=== PATIENT | female | born 1985 | race Caucasian/White ===

== ENCOUNTER 2024-07-15 11:45 | Emergency (ER) | payer OTHER, SELFPAY ==
--- NOTE | ~2024-07-15 | US_ITS ---
US venous doppler UE RT DATE: 07/15/2024 14:16 INDICATION: Right arm pain TECHNIQUE: Real-time and color flow imaging and Doppler analysis of the veins of the right upper extr emity COMPARISON: None FINDINGS: Right internal jugular, subclavian, axillary, brachial, basilic, cephalic, radial and ulnar veins are patent. No intraluminal thrombus is noted. IMPRESSION: No evidence of deep venous thrombosis of the deep venous system of the right upper extrem ity Reviewed, dictated and finalized at [facility]. Reviewed, dictated and finalized at [facility]. ZE CHASER IMPRESSION: No evidence of deep venous thrombosis of the deep venous system of the right upper extremity
[2024-07-15 11:47] VITALS: BP 129/70; PULSE 80; RESP 18; TEMP 36.4; O2SAT 100
--- NOTE | 2024-07-15 12:29 | ED.UPPEXIN ---
HPI - Extremity Injury (Upper) General Chief Complaint: Extremity Injury, Upper Stated Complaint: sent by Dr. Clark to be seen for poss blood clot Time Seen by Provider: 07/15/24 12:30 Source: patient Mode of arrival: ambulatory Limitations: no limitations History of Present Illness HPI narrative: 39 YEARS OLD WHITE FEMALE DROVE HERSELF TO THE EMERGENCY ROOM COMPLAINING OF RIGHT ARM PAIN AND RIGHT BREAST PAIN STARTED AFTER RIGHT BREAST BIOPSY JUNE 12, 2024. THE BIOPSY SHOWED SOME CALCIFICATION, SCHEDULED FOR MRI FOR FURTHER EVALUATION. PATIENT WAS TOLD THAT HER BREAST PAIN RELATED TO THE HEMATOMA POST BIOPSY, RIGHT ARM PAIN COULD BE SECONDARY TO DEEP VEIN THROMBOSIS, REFERRED TO THE ED BY HER OBGYN FOR VENOUS DOPPLER. PATIENT DENIES TROUBLE BREATHING OR CHEST PAIN. OR RECENT TRAUMA. Related Data Allergies Allergy/AdvReac Type Severity Reaction Status Date / Time pistachio nut Allergy Swelling Verified 07/15/24 11:53 of Lip/Tongue/Throat PSEUDOEPHEDRINE HCL Allergy Severe DIFFICULTY Uncoded 07/15/24 11:53 IN BREATHING Review of Systems Review of Systems: All systems reviewed & are unremarkable except as noted in HPI and below Exam Narrative: GENERAL APPEARANCE: WELL-DEVELOPED, WELL-NOURISHED SKIN: NORMAL COLOR HEAD: NORMOCEPHALIC, NONTRAUMATIC EYES: CLEAR CONJUNCTIVA NECK: SUPPLE, NONTENDER. RIGHT BREAST EXAM SHOWED SLIGHT BRUISES DISTALLY, SLIGHTLY TENDER WITH PALPATION, NO SWELLING, NO DISCHARGE, NO WARMTH CHEST AND RESPIRATORY: AIRWAY PATENT, NO RESPIRATORY DISTRESS, NO ACCESSORY MUSCLE USE HEART: REGULAR RATE/RHYTHM ABDOMEN: SOFT, NONTENDER, NO ORGANOMEGALY, QUIET BOWEL SOUNDS VASCULAR: NORMAL PERIPHERAL PULSES, NORMAL CAPILLARY REFILL. MUSCULOSKELETAL: RIGHT ARM SHOWED SLIGHT TENDERNESS MEDIALLY, NO BRUISES, NO SWELLING, THE ARM IS SOFT IN CONSISTENCY, NO RASH OR DEFORMITY. NEUROLOGIC: ALERT AND ORIENTED ?3, LEAD JAVASCRIPT ENGINEER IS NORMAL TESTED, NO GROSS MOTOR DEFICIT Course Vital Signs Vital signs: Vital Signs Temperature 36.4 C L 07/15/24 11:47 Pulse Rate 80 07/15/24 11:47 Respiratory Rate 18 07/15/24 11:47 Blood Pressure 129/70 07/15/24 11:47 Pulse Oximetry 100 07/15/24 11:47 Oxygen Delivery Room Air 07/15/24 11:47 Temperature 36.4 C L 07/15/24 11:47 Pulse Rate 80 07/15/24 11:47 Respiratory Rate 18 12/08/24 11:47 Blood Pressure 129/70 07/15/24 11:47 Pulse Oximetry 100 07/15/24 11:47 Oxygen Delivery Room Air 07/15/24 11:47 MDM - Extremity Injury (Upper) MDM Narrative Medical decision making narrative: PATIENT PRESENTS WITH RIGHT ARM AND RIGHT WRIST PAIN VITAL SIGNS ARE STABLE PHYSICAL EXAMINATION SHOWING BRUISES OF THE RIGHT BREAST SECONDARY TO BIOPSY, RIGHT ARM EXAM SHOWED SLIGHT TENDERNESS MEDIALLY OTHERWISE INSIGNIFICANT DIFFERENTIAL DIAGNOSIS MUSCULOSKELETAL PAIN, POST BIOPSY HEMATOMA, RIGHT UPPER EXTREMITY DEEP VEIN THROMBOSIS EXTREMELY LESS LIKELY. VENOUS DOPPLER RIGHT UPPER EXTREMITY SHOWED Differential Diagnosis Differential diagnosis: Likely other ( ABOVE) Imaging Data Radiologist's impression: Impressions Venous Doppler Study 07/15/24 14:22 IMPRESSION: No evidence of deep venous thrombosis of the deep venous system of the right upper extremity Discharge Plan Discharge Clinical Impression: Arm pain, right Patient Disposition: Home, Self-Care Condition: Stable Instructions: Arm Pain (ED) Additional Instructions: RETURN IF SYMPTOMS ARE WORSENING , CALL YOUR FAMILY PHYSICIAN FOR APPOINTMENT, TAKE TYLENOL, IBUPROFEN NEEDED FOR ACHES AND PAIN, CONTINUE HOME MEDICATIONS. Follow-up/Referrals: UNKNOWN,DOCTOR [Non-Staff] -
[2024-07-15 14:42] VITALS: BP 96/60; PULSE 70; RESP 16; O2SAT 99
== END 2024-07-15 14:45 | disposition home or self-care (01) ==
PROVIDERS: Emergency Provider Emergency Medicine
DX: M79.601 Pain in right arm (principal)
CPT/HCPCS: 93971; 99284

== ENCOUNTER 2025-01-02 08:36 | Outpatient (CLI) | payer OTHER, SELFPAY ==
--- NOTE | ~2025-01-02 | MR_ITS ---
MR breast BI wo/w con 01/02/2025 10:47 CDT INDICATION: TECHNIQUE: MRI of the breasts perform using standard protocol pre-and post IV contrast with the follo wing sequences: Axial T2 STIR, axial T1, axial vibrant T1 with fat suppression precontrast and multip hasic postcontrast. COMPARISON: No prior studies for comparison. FINDINGS: There are no abnormalities on the precontrast sequences. There is mild background parenchym al enhancement. There is a focal 5 mm mass with rapid washout enhancement in the upper inner quadrant of the right breast, middle third measuring 5 x 2 x 3 mm with oval configuration, heterogeneous enha ncement, too small to characterize for internal septations. This has a linear configuration on tempor al images, most likely benign background enhancement. No evidence of signal abnormalities in the axil giorgi or internal mammary node distributions. LEFT BREAST: No signal abnormalities on precontrast sequences. There is mild background parenchymal enhancement. No enhancing lesions following contrast administration. No areas of enhancement meeti ng threshold criteria on CAD analysis. No evidence of signal abnormalities in the axillary or inter nal mammary node distributions. IMPRESSION: 1: Right breast: Probable focus of 5 mm linear background enhancement upper inner quadrant of the ri ght breast, middle third at approximately 1:00. 2: Left breast: Negative. No evidence of malignancy. Recommendation: Correlation with diagnostic bilateral mammogram and possible additional ultrasound re commended. BI-RADS CATEGORY 0 - INCOMPLETE STUDY, NEED ADDITIONAL IMAGING EVALUATION. Reviewed, dictated and finalized at location [facility]. IMPRESSION: 1: Right breast: Probable focus of 5 mm linear background enhancement upper in ner quadrant of the right breast, middle third at approximately 1:00. 2: Left breast: Negative. No evidence of malignancy. Recommendation: Correlation with diagnostic bilateral mammogram and possible ad ditional ultrasound recommended. BI-RADS CATEGORY 0 - INCOMPLETE STUDY, NEED ADDITIONAL IMAGING EVALUATION.
--- OUTSIDE RECORDS SUMMARY | 2025-01-02 08:41 | XMS_ITS | Clinical Summary ---
Author Organization [facility] Address [address] [place] [address] Care Team Providers Care Ceo & Founder Name Role Phone Reanna George MD Primary Care Provider Allergies Active Allergy Reactions Criticality Noted Date Comments Pistachio Nut Swollen tongue High 04/25/2024 Pseudoephedrine Shortness of breath Reaction: SOB, Medications Tri-Sprintec, 28, 0.18/0.215/0.25 mg-35 mcg (28) per tablet Take 1 tablet by mouth daily 11/09/[address] (PROTONIX) 20 mg EC tabletIndication s:Globus sensation,Gastro esophageal reflux disease, unspecified whether esophagitis present Take 1 tablet (20 mg total) by mouth daily 90 tablet 1 04/25/2024 5 Active Active Problems Problem Noted Date Diagnosed Date 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) Immunizations Immunization Administration Dates Next Due Influenza, Quadrivalent, Sadie l Culture-based MDCK, Preservative Free, Antibiotic Free, Intramuscular 07/05/2022 Influenza, Quadrivalent, Spl it, Preservative Free, Intramuscular 06/27/2023,05/08/2015,05/17/2014 Influenza, Trivalent, IM (MDV) 05/08/2013 Influenza, Unspecified 05/08/2019,05/24/2018,10/2016 Tdap 02/27/2020,05/19/2010 Surgical History Surgery Date Site/Laterality Comments WISDOM TOOTH EXTRACTION Oral Surgery Tooth Extraction [place] [facility] - (Added by TW Conv) BREAST BIOPSY 06/12/2024 Right Medical History Medical History Date Comments Hx Other Medical episiotomy repa ir; Comments: TOSHIA 03/24/2015 - Contact dermatitis Glaucoma Family History Medical History Relation Name Comments Diabetes Father Family history of diabetes mellitus - (Added by TW Conv) Breast cancer Mother Cancer -breast ; Cause of : Cancer -breast Ovarian cancer Mother Family histor y of ovarian cancer - (Added by TW Conv) Stroke Other 1 Family history of cerebrovascular accident (CVA) - Relation: Grandmother (Added by TW Conv) Heart disease Other 2 Family history of cardiac disorder - Relation: Grandparent (Added by TW Conv) Osteoporosis Other 3 Family history of osteoporosis - Relation: Grandmother (Added by TW Conv) Relation Name Status Comments Father Mother Other 1 Other 2 Other 3 Social History Tobacco Use Types Packs/Day Years Used Date Smoking Tobacco: Former Cigarettes 0.5 8 0 08/15/2000 - 08/15/2008 Smokeless Tobacco: Never Tobacco Cessation:Counseling Given: Not Answered Alcohol Use Standard Drinks/Week Comments Yes 0 (1 standard drink = 0.6 oz pur e alcohol) AUDIT-C Answer Date Recorded Q1: How often do you have a drink containing alc ohol? 2-4 times a month 12/08/2021 Q2: How many drinks containi ng alcohol do you have on a typical day when you are drinking? 1 or 2 12/08/2021 Q3: How often do you have si x or more drinks on one occasion? 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 Gender Identity Not on file Sexual Orientation Not on file Obstetrics History Last Filed Vital Signs Vital Sign Reading Time Taken Comments Blood Pressure 118/76 04/25/2024 8:26 AM CDT Pulse 71 02/27/2020 1:10 PM CDT Temperature 36.3 C (97.3 F) 04/25/2024 8:26 AM CDT Respiratory Rate 20 04/25/2024 8:26 AM CDT Oxygen Saturation 97% 02/27/2020 1:10 PM CDT Inhaled Oxygen Concentration - - Weight 64.4 kg (142 lb) 04/25/2024 8:26 AM CDT Height 165.1 cm (5' 5) 04/25/2024 8:26 AM CDT Body Mass Index 23.63 04/25/2024 8:26 AM CDT Plan of Treatment Health Maintenance Due Date Last Done Comments Hepatitis C Screening 1984 Hepatitis B Screening 2002 Cervical Cancer Screening 02/05/2025 02/06/2024 Influenza Vaccine (Season Ended) 2025 06/27/2023, 07/05/2022, 05/08/2019, Additional history exists Covid-19 Vaccine ( season) 2025 09/25/2020, 09/01/2020 Postponed from 04/08/2024 (Patient declined, but will receive in the future) Depression Screening 04/25/2025 04/25/2024, 12/08/2021, 02/27/2020, Additional history exists Regular Well Visit/Exam 18-64 04/25/2025 04/25/2024, 04/25/2024, 02/27/2020, Additional history exists Breast Cancer Screening-Mammogram 05/16/2025 05/16/2024 DTaP/Tdap/Td Vaccine (3 - Td or Tdap) 02/26/2030 02/27/2020, 05/19/2010 HPV Vaccines Aged Out No longer eligi ble based on patient's age to complete this topic Pneumococcal vaccine <65 Aged Out No longer eligible based on patient's age to complete this topic Varicella Vaccines Discontinued Medical Devices Implanted Type Area Clay Molder Device Identifier Shelf Expiration Date Model / Serial / Lot [employer] Writer.ly Rigid End Hourglass Marker Breast Biopsy Titanium [id number] -[id number] - [id number] Implanted:Qty: 1 on 06/12/2024 at [facility] [employer] [id number] 09/27/2025 TRIMARK-EV FAM-2S-13 / / [id number] Procedures Procedure Name Priority Date/Time Associated Diagnosis Comments SCREENING MAMMOGRAM BILATERAL W RYAN Schedule Routine, Read Routine (OP Routine) 05/16/2024 9:55 AM CDT Screening mammogram for breast cancer from Last 3 Months or Most Recently Relevant to Health Maintenance Results * Screening Mammogram Bilateral W Ryan (05/16/2024 9:55 AM CDT) Anatomical Region Laterality Modality Breast Bilateral Mammography Narrative 05/17/2024 3:34 PM CDT Mammogram Technique: Bilateral Digital Breast Tomosynthesis, Bilateral C-view 2D Screening mammogram. Views obtained: bilateral craniocaudal and bilateral mediolateral oblique. Computer Aided Detection was performed. Mammogram Findings: This is a baseline study. The breasts are heterogeneously dense, which may obscure small masses. There are calcifications with associated focal asymmetry in the subareolar area of the right breast. There is no suspicious abnormality in the left breast. Impression: Calcifications in the right breast require additional evaluation. Diagnostic mammogram and possible ultrasound of the right breast are recommended at this time. OVERALL FINAL ASSESSMENT: BI-RADS CATEGORY 0: Incomplete: Need additional imaging evaluation. Procedure Note Tania Hooper MD - 05/17/2024 Mammogram Technique: Bilateral Digital Breast Tomosynthesis, Bilateral C-view 2D Screening mammogram. Views obtained: bilateral craniocaudal and bilateral mediolateral oblique. Computer Aided Detection was performed. Mammogram Findings: This is a baseline study. The breasts are heterogeneously dense, which may obscure small masses. There are calcifications with associated focal asymmetry in thesubareolar area of the right breast. There is no suspicious abnormality in the left breast. Impression: Calcifications in the right breast require additional evaluation. Diagnostic mammogram and possible ultrasound of the right breast are recommended at this time. OVERALL FINAL ASSESSMENT: BI-RADS CATEGORY 0: Incomplete: Need additional imaging evaluation. us Self Referral IMG MAMMO PROCEDURES Final Resul t from Last 3 Months or Most Recently Relevant to Health Maintenance Insurance [employer] [facility] [employer] [facility] [place] [address] [employer] [place] [id number] Care Teams Ceo & Founder Relationship Specialty Start Date End Date Reanna George MD PCP - General 01/13/07
--- OUTSIDE RECORDS SUMMARY | 2025-01-02 08:41 | XMS_ITS | Clinical Summary ---
Author Organization [facility] Address [address] [place] [address] Care Team Providers Care Manager Applied Name Role Phone Unavailable Primary Care Provider Unavailabl e Source Comments [facility],non-owned Affiliates and Associated Physician Practices is amultiple site organization consisting of ambulatory clinics and hospital sitesin [place] and [place]. This disclosure is being madepursuant to the Care Everywhere program and may not contain all information available regarding this patient. Last updated 18.[facility] Social History Tobacco Use Types Packs/Day Years Used Date Smoking Tobacco: Never Assessed Comments Unknown Sex and Gender Information Value Date Recorded Sex Assigned at Not on file Legal Sex Female 10:09 AM CDT Gender Identity Not on file Sexual Orientation Not on file Last Filed Vital Signs Vital Sign Reading Time Taken Comments Blood Pressure 122/68 01/06/2021 5:25 PM CDT Pulse 80 01/06/2021 5:25 PM CDT Temperature 37.1 C (98.7 F) 01/06/2021 5:25 PM CDT Respiratory Rate 20 01/06/2021 5:25 PM CDT Oxygen Saturation - - Inhaled Oxygen Concentration - - Weight - - Height - - Body Mass Index - - Plan of Treatment Health Maintenance Due Date Last Done Comments LIPID TESTING 1984 MAMMOGRAM 1984 HIV SCREENING 1999 HEPATITIS C SCREENING 03/31/2002 DTAP/TDAP/TD VACCINES (1 - Tdap) 2003 HEPATITIS B VACCINE (1 of 3 - 19+ 3-dose series) 2003 COVID-19 VACCINE ( - 2023- season) 2024 DEPRESSION SCREENING 08/08/2024 INFLUENZA VACCINE (Season Ended) 2025 05/08/2019, 05/24/2018, 05/10/2017, Additional history exists ZOSTER VACCINE (1 of 2) 2034 HIB VACCINE Aged Out No longer eligi ble based on patient's age to complete this topic HPV VACCINE Aged Out No longer eligi ble based on patient's age to complete this topic MENINGOCOCCAL (Group B) VACCINE SHARED DECISION-MAKING Aged Out No longer eligible based on patient's age to complete this topic MENINGOCOCCAL GROUPS A/C/Y/W VACCINE Aged Out No longer eligible based on patient's age to complete this topic PNEUMOCOCCAL VACCINE Aged Out No long er eligible based on patient's age to complete this topic Insurance
--- OUTSIDE RECORDS SUMMARY | 2025-01-02 08:41 | XMS_ITS | Encounter Summary ---
Author Organization [facility] Address [address] [place] [address] Phone Care Team Providers Care Baggage Agent Supervisor Name Role Phone Reanna George MD Primary Care Provider Encounter Details Date Type Department Care Team (Latest Contact Info) Description 12/13/2017 Orders Only [facility] CONVERSION Scanning, Provider Social History Tobacco Use Types Packs/Day Years Used Date Smoking Tobacco: Never Smokeless Tobacco: Never Alcohol Use Standard Drinks/Week Comments Yes 0 (1 standard drink = 0.6 oz pur e alcohol) Comments Unknown Sex and Gender Information Value Date Recorded Sex Assigned at Not on file 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 Gender Identity Not on file Sexual Orientation Not on file documented as of this encounter Plan of Treatment Not on file documented as of this encounter Procedures Procedure Name Priority Date/Time Associated Diagnosis Comments OBSTETRIC/GYNECOLOGY ULTRASONOGRAPHY REPORT 12/13/2017 11:54 AM CDT documented in this encounter Results * OBSTETRIC/GYNECOLOGY ULTRASONOGRAPHY REPORT (12/13/2017 11:54 AM CDT) Anatomical Region Laterality Modality Ultrasound us Provider Scanning IMG OB US PROCEDURES Final Res ult documented in this encounter Visit Diagnoses Not on filedocumented in this encounter Care Teams Baggage Agent Supervisor Relationship Specialty Start Date End Date Reanna George MD PCP - General 01/13/07 documented as of this encounter
--- OUTSIDE RECORDS SUMMARY | 2025-01-02 08:41 | XMS_ITS | Referral Summary ---
Author Organization 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 Gender Identity Not on file Sexual Orientation [...] 04/25/2024 8:26 AM CDT Plan of Treatment Not on file Medical Devices Implanted Type Area Kick Press Operator Device Identifier Shelf Expiration Date Model / Serial / Lot [email or web address] Sherie Rigid End Hourglass Marker Breast Biopsy Titanium [id number] - [id number] Implanted:Qty: 1 on 06/12/2024 at [facility] [email or web address] [id number] 09/27/2025 ELLYARK-EV FAM-2S-13 / / [id number] Procedures Procedure Name Priority Date/Time Associated Diagnosis [...] Most Recently Relevant to Health Maintenance Insurance [employer] [employer] [employer] [facility] CHOICE PLUS [employer] Care Teams Pheresis Specialist Relationship Specialty Start Date End Date Reanna George MD PCP - General 01/13/07
== END 2025-01-02 08:37 | disposition home or self-care (01) ==
PROVIDERS: Visit Provider Obstetrics & Gynecology
DX: N64.4 Mastodynia (principal); R92.2 Inconclusive mammogram
CPT/HCPCS: 77049; A9577; C8908